=== PATIENT | female | born 1980 | race Caucasian/White ===

== ENCOUNTER 2023-11-16 08:07 | Emergency (ER) | payer OTHER ==
[2023-11-16 08:20] VITALS: BP 120/76; PULSE 65
[2023-11-16] MEDS: Orphenadrine 60 MG/2 ML Inj IM ONE (09:15)
[2023-11-16] MEDS: Ketorolac 30 MG/ML SDV IM ONE (09:16)
== END 2023-11-16 09:33 | disposition home or self-care (01) ==
LOC: LL.ED 08:07
DX: S39.012A Strain of muscle, fascia and tendon of lower back, initial encounter (principal); Z88.0 Allergy status to penicillin; Z88.1 Allergy status to other antibiotic agents; Z79.899 Other long term (current) drug therapy; X50.0XXA Overexertion from strenuous movement or load, initial encounter; Y93.89 Activity, other specified
CPT/HCPCS: 96372; 99283; J1885; J2360